=== PATIENT | female | born 2000 | race African-American/Black ===

== ENCOUNTER → 2021-09-15 | Outpatient (REF) ==
[~2021-09-15] MED LIST: LEVO50TA5 PO
== END ==
LOC: M LAB 15:12
PROVIDERS: ATTEND Nurse Practitioner Adult Health
DX: Z00.00 Encounter for general adult medical examination without abnormal findings (principal)

== ENCOUNTER 2022-04-11 12:17 | Emergency (ER) | payer MEDICAID ==
[~2022-04-11] VITALS: Ht 165.1 cm; Wt 64.1 kg
[2022-04-11 12:18] VITALS: BP 118/75
[2022-04-11] MEDS ORDERED: PRENMIS3 PO (12:39)
== END 2022-04-11 15:55 | disposition left against medical advice (07) ==
LOC: M ED 12:17
DX: Z53.21 Procedure and treatment not carried out due to patient leaving prior to being seen by health care provider (principal)

== ENCOUNTER 2022-05-02 09:53 | Emergency (ER) | payer MEDICAID, OTHER ==
[~2022-05-02 09:53] MED LIST changes: +PRENMIS3 PO
[2022-05-02] MEDS ORDERED: NS 1,000 ML IV ONE (10:00)
[2022-05-02] MEDS ORDERED: methylPREDNISolone 125MG 2ML VIAL IV ONE (10:00)
[2022-05-02] MEDS ORDERED: IPRATROPIUM 0.5MG/ALBUTEROL 2.5MG INH SOL UD 3ML (DUONEB) As Ordered ONE (10:03)
[2022-05-02] MEDS ORDERED: ALBUTEROL SULFATE 2.5 MG/0.5 ML INH NEB SOLN As Ordered ONE (10:04)
[2022-05-02 10:07] LABS: ABG BASE EXCESS -0.4 (-2.0-2.0); ABG HCO3 21.5 MEQ/L (22.0-26.0); ABG O2 SATURATION 99.4 % (95.0-99.0); ABG PARTIAL PRESSURE CO2 28.2 mmHg (35.0-45.0); ABG PARTIAL PRESSURE O2 185.8 mmHg (75.0-100.0); ABG STANDARD HCO3 24.2 MEQ/L (22.0-26.0); ABG TOTAL CO2 22.4 MEQ/L (22.0-29.0); ABG pH (ARTERIAL) 7.501 UNITS (7.350-7.450)
[2022-05-02 10:25] LABS: BASO % 0.3 % (0.0-1.0); EOS # 0.1 10^3/uL (0.0-0.5); EOS % 1.3 % (0.0-3.0); HEMATOCRIT 40.6 % (36.0-47.0); HEMOGLOBIN 14.1 g/dl (12.0-15.5); LYMPH # 2.5 10^3/uL (1.5-5.0); LYMPH % 28.8 % (24.0-44.0); MEAN CORPUSCULAR HEMOGLOBIN 28.9 pg (27.0-33.0); MEAN CORPUSCULAR HGB CONC 34.7 g/dl (32.0-36.5); MEAN CORPUSCULAR VOLUME 83.2 fl (80.0-96.0); MONO # 0.8 10^3/uL (0.0-0.8); MONO % 8.7 % (2.0-8.0); NEUTROPHILS # 5.3 10^3/uL (1.5-8.5); NEUTROPHILS % 60.4 % (36.0-66.0); PLATELET COUNT, AUTOMATED 378 10^3/uL (150-450); RED BLOOD COUNT 4.88 10^6/uL (4.00-5.40); WHITE BLOOD COUNT 8.8 10^3/uL (4.0-10.0)
[2022-05-02] MEDS ORDERED: ALBUTEROL SULFATE 2.5 MG/0.5 ML INH NEB SOLN INH ONE (10:50)
[2022-05-02] MEDS ORDERED: IPRATROPIUM 0.5MG/ALBUTEROL 2.5MG INH SOL UD 3ML (DUONEB) NEB ONE (10:50)
[2022-05-02 11:06] LABS: MAGNESIUM LEVEL 1.9 MG/DL (1.8-2.4)
[2022-05-02 11:47] LABS: ALBUMIN 3.9 GM/DL (3.2-5.2); ALT/SGPT 17 U/L (12-78); BILIRUBIN,DIRECT 0.1 MG/DL (0.0-0.2); BILIRUBIN,TOTAL 0.4 MG/DL (0.2-1.0); BLOOD UREA NITROGEN 5 MG/DL (7-18); CALCIUM LEVEL 8.8 MG/DL (8.5-10.1); CARBON DIOXIDE LEVEL 23 MEQ/L (21-32); CHLORIDE LEVEL 105 MEQ/L (98-107); CREATININE FOR GFR 0.77 MG/DL (0.55-1.30); GLOMERULAR FILTRATION RATE > 60.0 (>60); GLUCOSE, FASTING 79 MG/DL (70-100); NT-PRO BNP 84 PG/ML (<125); POTASSIUM SERUM 3.8 MEQ/L (3.5-5.1); SODIUM LEVEL 134 MEQ/L (136-145); THYROXINE (T4) 17.3 UG/DL (4.5-12.0); TOTAL PROTEIN 8.3 GM/DL (6.4-8.2)
[2022-05-02 11:53] LABS: APPEARANCE, URINE MANUAL CLEAR (CLEAR); BILIRUBIN, URINE MANUAL NEGATIVE (NEGATIVE); BLOOD URINE MANUAL NEGATIVE (NEGATIVE); COLOR, URINE MANUAL YELLOW (YELLOW); GLUCOSE, URINE (UA) MANUAL NEGATIVE (NEGATIVE); KETONE, URINE MANUAL NEGATIVE (NEGATIVE); LEUKOCYTE ESTERASE, URINE MAN NEGATIVE (NEGATIVE); NITRITE, URINE MANUAL NEGATIVE (NEGATIVE); PROTEIN, URINE MANUAL NEGATIVE (NEGATIVE); SPECIFIC GRAVITY,URINE MANUAL 1.005 (1.002-1.035); UROBILINOGEN, URINE MANUAL NORMAL (NORMAL)
[2022-05-02 12:45] LABS: AMPHETAMINES LEVEL URINE NEGATIVE (NEGATIVE); BARBITURATES URINE NEGATIVE (NEGATIVE); BENZODIAZEPINES URINE NEGATIVE (NEGATIVE); CANNABINOIDS URINE NEGATIVE (NEGATIVE); COCAINE METABOLITE URINE NEGATIVE (NEGATIVE); METHADONE URINE NEGATIVE (NEGATIVE); OPIATES URINE NEGATIVE (NEGATIVE); PHENCYCLIDINE URINE NEGATIVE (NEGATIVE)
[2022-05-02] MEDS ORDERED: PRED20TA PO (14:05)
[2022-05-02] MEDS ORDERED: ALBU6.7H6 INH (14:05)
[2022-05-02 15:15] VITALS: BP 111/69
[2022-05-02 16:14] LABS: INR 1.04; PROTHROMBIN TIME 13.8 SECONDS (12.5-14.5)
== END 2022-05-02 15:15 | disposition home or self-care (01) ==
LOC: M ED 10:52
DX: O99.511 Diseases of the respiratory system complicating pregnancy, first trimester (principal); Z3A.09 9 weeks gestation of pregnancy; Z90.89 Acquired absence of other organs; Z79.899 Other long term (current) drug therapy; Z88.8 Allergy status to other drugs, medicaments and biological substances
CPT/HCPCS: 36600; 71045; 76801; 80047; 80048; 80076; 80307; 81002; 82803; 83605; 83735; 83880; 84436; 84443; 84550; 84702; 85025; 85384; 85610; 87040; 87077; 87086; 87486; 87581; 87633; 87798; 93005; 93041; 94640; 94760; 96361; 96374; 99285; J2930

== ENCOUNTER → 2022-07-18 | Outpatient (CLI) | payer OTHER ==
[~2022-07-18] MED LIST changes: +ALBU6.7H6 INH; +PRED20TA PO
== END ==
LOC: M WHC 11:41 → MERGE 12:00
PROVIDERS: ATTEND Nurse Practitioner Women's Health
DX: Z34.92 Encounter for supervision of normal pregnancy, unspecified, second trimester (principal); Z3A.20 20 weeks gestation of pregnancy

== ENCOUNTER 2022-08-02 07:22 | Emergency (ER) | payer OTHER ==
[~2022-08-02] VITALS: Ht 165.1 cm; Wt 66.6 kg
[2022-08-02] MEDS ORDERED: NS 1,000 ML IV ONE (09:25)
[2022-08-02] MEDS ORDERED: LIDOCAINE VISCOUS 2% SOLN 15ML UDC SS ONE (09:25)
[2022-08-02 10:29] LABS: BASO % 0.4 % (0.0-1.0); EOS # 0.2 10^3/uL (0.0-0.5); EOS % 2.7 % (0.0-3.0); HEMATOCRIT 35.2 % (36.0-47.0); HEMOGLOBIN 12.2 g/dl (12.0-15.5); LYMPH # 1.5 10^3/uL (1.5-5.0); LYMPH % 19.9 % (24.0-44.0); MEAN CORPUSCULAR HGB CONC 34.7 g/dl (32.0-36.5); MEAN CORPUSCULAR VOLUME 86.5 fl (80.0-96.0); MONO # 0.6 10^3/uL (0.0-0.8); MONO % 8.4 % (2.0-8.0); NEUTROPHILS # 5.1 10^3/uL (1.5-8.5); NEUTROPHILS % 67.9 % (36.0-66.0); PLATELET COUNT, AUTOMATED 259 10^3/uL (150-450); RED BLOOD COUNT 4.07 10^6/uL (4.00-5.40); WHITE BLOOD COUNT 7.5 10^3/uL (4.0-10.0)
[2022-08-02 10:50] LABS: ERYTHROCYTE SEDIMENTATION RATE 39 mm/hr (0-20)
[2022-08-02 11:00] LABS: BLOOD UREA NITROGEN < 5 MG/DL (9-23); CALCIUM LEVEL 8.1 MG/DL (8.5-10.1); CARBON DIOXIDE LEVEL 24 MMOL/L (20-31); CHLORIDE LEVEL 104 MMOL/L (98-107); CREATININE FOR GFR 0.62 MG/DL (0.55-1.30); GLOMERULAR FILTRATION RATE > 60.0 (>60); GLUCOSE, FASTING 88 MG/DL (60-100); POTASSIUM SERUM 3.8 MMOL/L (3.5-5.1); SODIUM LEVEL 136 MMOL/L (136-145)
[2022-08-02 11:02] LABS: MONO REFLEX EBV COMP NEGATIVE (NEGATIVE)
[2022-08-02] MEDS ORDERED: AUGMENTIN 875 MG TAB PO ONE (11:45)
[2022-08-02] MEDS ORDERED: AMOX875T2 PO (11:49)
[2022-08-02] MEDS ORDERED: BENZ200C70 PO (11:49)
[2022-08-02] MEDS ORDERED: PRED5SOL10 PO (11:49)
[2022-08-02] MEDS ORDERED: MUCI1TAB16 PO (11:49)
[2022-08-02] MEDS ORDERED: SALI0.6530 NARES (11:51)
[2022-08-02 11:53] VITALS: BP 104/51
[2022-08-02] MEDS ORDERED: predniSONE 20 MG TAB PO ONE (11:55)
[2022-08-03 15:08] LABS: EBV AB TO NUCLEAR ANTIGEN >600.0 U/mL (0.0-17.9); EBV VIRAL CAPSID AG IgM <36.0 U/mL (0.0-35.9)
== END 2022-08-02 12:03 | disposition home or self-care (01) ==
LOC: M ED 07:22
DX: O99.512 Diseases of the respiratory system complicating pregnancy, second trimester (principal); J03.90 Acute tonsillitis, unspecified; R09.81 Nasal congestion; J45.909 Unspecified asthma, uncomplicated; Z88.1 Allergy status to other antibiotic agents; Z88.7 Allergy status to serum and vaccine; Z3A.22 22 weeks gestation of pregnancy; Z79.52 Long term (current) use of systemic steroids; Z79.2 Long term (current) use of antibiotics; Z79.810 Long term (current) use of selective estrogen receptor modulators (SERMs); Z79.899 Other long term (current) drug therapy
CPT/HCPCS: 36415; 80048; 83605; 85025; 85652; 86140; 86308; 86664; 86665; 87428; 87880; 99284; J7512

== ENCOUNTER → 2022-09-28 | Outpatient (CLI) | payer OTHER ==
[~2022-09-28] VITALS: Ht 165.1 cm; Wt 70.6 kg
[~2022-09-28] MED LIST changes: +AMOX875T2 PO; +BENZ200C70 PO; +MUCI1TAB16 PO; +PRED15SO24 PO; +SALI0.6530 NARES
[2022-09-28 20:02] VITALS: BP 119/65
== END ==
LOC: M LDO 19:34
PROVIDERS: ATTEND Obstetrics & Gynecology
DX: O36.8130 Decreased fetal movements, third trimester, not applicable or unspecified (principal); Z3A.30 30 weeks gestation of pregnancy; O99.283 Endocrine, nutritional and metabolic diseases complicating pregnancy, third trimester; E03.9 Hypothyroidism, unspecified; Z79.890 Hormone replacement therapy; Z88.1 Allergy status to other antibiotic agents; Z88.8 Allergy status to other drugs, medicaments and biological substances
CPT/HCPCS: 59025; 76815; G0463

== ENCOUNTER → 2022-10-12 | Outpatient (CLI) | payer OTHER | LOC: M WHC 07:45 | PROVIDERS: ATTEND Obstetrics & Gynecology | DX: O26.843 Uterine size-date discrepancy, third trimester (principal); Z3A.32 32 weeks gestation of pregnancy ==

== ENCOUNTER 2022-10-28 11:00 | Inpatient (IN) | payer OTHER ==
[~2022-10-28] VITALS: Ht 165.1 cm; Wt 73.7 kg
[2022-10-28] MEDS: PRENATAL VITAMINS CHEWABLE TABLET PO SCH (09:00)
[2022-10-28 11:18] VITALS: BP 131/85
[2022-10-28] MEDS ORDERED: PRENTAB9 PO (11:39)
[2022-10-28] MEDS ORDERED: LEVO112T2 PO (11:39)
[2022-10-28] MEDS ORDERED: UNIS25TA3 PO (11:39)
[2022-10-28] MEDS ORDERED: HEAL1TAB PO (11:40)
[2022-10-28] MEDS ORDERED: HOME MED LIST COMPLETE! XX SCH (11:40)
[2022-10-28] MEDS ORDERED: FLUCONAZOLE 50MG TABLET PO ONE (11:55)
[2022-10-28] MEDS ORDERED: DOCUSATE SODIUM 100MG CAPSULE PO PRN (12:00)
[2022-10-28] MEDS ORDERED: LACTATED RINGER'S 1000 ML IV STA (12:01)
[2022-10-28 12:34] LABS: BASO % 0.4 % (0.0-1.0); EOS # 0.1 10^3/uL (0.0-0.5); EOS % 1.7 % (0.0-3.0); HEMATOCRIT 33.9 % (36.0-47.0); HEMOGLOBIN 11.3 g/dl (12.0-15.5); LYMPH # 1.9 10^3/uL (1.5-5.0); LYMPH % 24.6 % (24.0-44.0); MEAN CORPUSCULAR HEMOGLOBIN 28.5 pg (27.0-33.0); MEAN CORPUSCULAR HGB CONC 33.3 g/dl (32.0-36.5); MEAN CORPUSCULAR VOLUME 85.4 fl (80.0-96.0); MONO # 0.9 10^3/uL (0.0-0.8); MONO % 12.2 % (2.0-8.0); NEUTROPHILS # 4.6 10^3/uL (1.5-8.5); NEUTROPHILS % 60.7 % (36.0-66.0); PLATELET COUNT, AUTOMATED 311 10^3/uL (150-450); RED BLOOD COUNT 3.97 10^6/uL (4.00-5.40); WHITE BLOOD COUNT 7.6 10^3/uL (4.0-10.0)
[2022-10-28] MEDS: BETAMETHASONE SOLUSPAN 6MG/ML 5ML VIAL IM SCH (12:56)
[2022-10-28] MEDS: LR 1,000 ML IV SCH ×2 (12:57→20:02)
[2022-10-28 14:21] VITALS: BP 114/65
[2022-10-28 14:52] LABS: GC DNA AMPLIFICATION NEGATIVE (NEGATIVE)
[2022-10-28 17:43] VITALS: BP 106/59
[2022-10-28 18:13] LABS: APPEARANCE, URINE HAZY (CLEAR); BACTERIA, URINE AUTO 1+ (NEGATIVE); BILIRUBIN, URINE AUTO NEGATIVE (NEGATIVE); BLOOD, URINE BLOOD 1+ (NEGATIVE); COLOR, URINE YELLOW (YELLOW); GLUCOSE, URINE (UA) AUTO NEGATIVE (NEGATIVE); KETONE, URINE AUTO NEGATIVE (NEGATIVE); LEUKOCYTE ESTERASE, URINE AUTO 3+ (NEGATIVE); NITRITE, URINE AUTO NEGATIVE (NEGATIVE); PROTEIN, URINE AUTO NEGATIVE (NEGATIVE); RBC, URINE AUTO 7 /HPF (0-3); SPECIFIC GRAVITY URINE AUTO 1.009 (1.002-1.035); SQUAMOUS EPITHELIAL CELL UR AU 3 /HPF (0-6); WBC, URINE AUTO 38 /HPF (0-3)
[2022-10-28 20:03] VITALS: BP 108/67
[2022-10-28 23:24] VITALS: BP 107/60
[2022-10-28] MEDS ORDERED: diphenhydrAMINE 50MG/ML VIAL IV ONE (23:30)
[2022-10-28] MEDS ORDERED: diphenhydrAMINE 50MG CAP PO ONE (23:40)
[2022-10-29] VITALS (11 sets, daily range): BP systolic 95–129; BP diastolic 51–74
[2022-10-29] MEDS ORDERED: ONDANSETRON 4MG 2ML VIAL IV SCH (03:00)
[2022-10-29] MEDS: LR 1,000 ML IV SCH ×4 (03:47→20:19)
[2022-10-29] MEDS: LEVOTHYROXINE 112MCG TABLET (0.112MG) PO SCH (06:09)
[2022-10-29] MEDS ORDERED: ONDANSETRON 4MG 2ML VIAL IV PRN (08:00)
[2022-10-29] MEDS: PRENATAL VITAMINS CHEWABLE TABLET PO SCH (09:00)
[2022-10-29] MEDS: BETAMETHASONE SOLUSPAN 6MG/ML 5ML VIAL IM SCH (12:09)
[2022-10-30] VITALS (16 sets, daily range): BP systolic 100–135; BP diastolic 54–78
[2022-10-30] MEDS: LR 1,000 ML IV SCH (05:19)
[2022-10-30] MEDS: LEVOTHYROXINE 112MCG TABLET (0.112MG) PO SCH (06:56)
[2022-10-30] MEDS: PRENATAL VITAMINS CHEWABLE TABLET PO SCH (09:00)
[2022-10-30] MEDS ORDERED: OXYTOCIN INJ 10UNITS/ML 1ML VIAL IM PRN (12:10)
[2022-10-30] MEDS ORDERED: TRANEXAMIC ACID INJection 1,000 MG in NS 100 ML IV PRN (12:10)
[2022-10-30] MEDS ORDERED: OXYTOCIN DRIP 30 UNITS in IV 1 EA IV SCH ×2 (12:10→23:50)
[2022-10-30] MEDS ORDERED: LIDOCAINE 1% MDV 20ML VIAL INFIL PRN (12:10)
[2022-10-30] MEDS ORDERED: OXYTOCIN DRIP 30 UNITS in IV 1 EA IV PRN ×6 (12:10)
[2022-10-30] MEDS ORDERED: OXYTOCIN INJ 10UNITS/ML 1ML VIAL IV PRN (12:10)
[2022-10-30] MEDS ORDERED: CARBOPROST TROMETHAMINE 250 MCG/ML AMP IM PRN (12:10)
[2022-10-30] MEDS ORDERED: LR 1,000 ML IV SCH (12:10)
[2022-10-30] MEDS ORDERED: METHYLERGONOVINE MALEATE 0.2MG/ML 1ML VIAL IM PRN (12:10)
[2022-10-30] MEDS ORDERED: miSOPROStol 50MCG 1/2 TABLET PV PRN (12:10)
[2022-10-30] MEDS ORDERED: miSOPROStol 50MCG 1/2 TABLET PO ONE (14:15)
[2022-10-30] MEDS ORDERED: miSOPROStol 50MCG 1/2 TABLET PO PRN (14:35)
[2022-10-30] MEDS ORDERED: ACETAMINOPHEN 500 MG TAB PO ONE (16:10)
[2022-10-30] MEDS ORDERED: BICITRA 30ML SOLN UDC PO ONE ×2 (18:55→22:00)
[2022-10-30] MEDS ORDERED: ceFAZolin SOD 2 GM in IV 1 EA IV ONE (18:55)
[2022-10-30] MEDS ORDERED: ONDANSETRON 4MG 2ML VIAL As Ordered ONE (19:45)
[2022-10-30] MEDS ORDERED: KETOROLAC 60MG 2ML VIAL As Ordered ONE (19:45)
[2022-10-30] MEDS ORDERED: OXYTOCIN INJ 10UNITS/ML 1ML VIAL As Ordered ONE ×2 (19:45→23:40)
[2022-10-30] MEDS ORDERED: fentaNYL 100 MCG/2 ML INJECTION As Ordered ONE (19:46)
[2022-10-30] MEDS ORDERED: MORPHINE PRES-FREE INJ 10 MG/10 ML VIAL As Ordered ONE (19:46)
[2022-10-30 23:43] LABS: CORD GAS ABE V 1.4; CORD GAS HCO3 V 27.3 MMOL/L; CORD GAS O2 SAT V 56.9 %; CORD GAS PCO2 V 46.9 mmHg; CORD GAS PH V 7.383 UNITS; CORD GAS PO2 V 22.2 mmHg; CORD GAS SBC V 24.4 MMOL/L; CORD GAS TCO2 V 28.7 MMOL/L
[2022-10-30] MEDS ORDERED: OXYTOCIN 30UNITS IN 0.9% NaCl 500ML IV BAG As Ordered ONE (23:43)
[2022-10-30] MEDS ORDERED: ePHEDrine SULFATE 25 MG/5 ML(5MG/ML) SYRINGE As Ordered ONE (23:48)
[2022-10-30] MEDS ORDERED: oxyCODONE 5MG TAB PO PRN (23:50)
[2022-10-30] MEDS ORDERED: MOM 30ML SUSPENSION UDC PO PRN (23:50)
[2022-10-30] MEDS ORDERED: RHOGAM 300MCG (1500IU) INJ IM SCH (23:50)
[2022-10-31] VITALS (20 sets, daily range): BP systolic 111–172; BP diastolic 67–89
[2022-10-31] MEDS ORDERED: oxyCODONE 5MG TAB PO PRN
[2022-10-31] MEDS ORDERED: NALOXONE INJ 0.4MG/1ML VIAL IV PRN ×2
[2022-10-31] MEDS ORDERED: **NOTE PATIENT COMMENT** MISC XX SCH
[2022-10-31] MEDS ORDERED: LR 1,000 ML IV SCH
[2022-10-31] MEDS ORDERED: METOCLOPRAMIDE INJ 10MG/2ML VIAL IV PRN
[2022-10-31] MEDS ORDERED: fentaNYL 100 MCG/2 ML INJECTION IV PRN
[2022-10-31] MEDS ORDERED: ONDANSETRON 4MG 2ML VIAL IV PRN
[2022-10-31] MEDS ORDERED: diphenhydrAMINE 50MG/ML VIAL IV PRN
[2022-10-31] MEDS ORDERED: diphenhydrAMINE 50MG/ML VIAL As Ordered ONE (00:14)
[2022-10-31] MEDS: SLF 3 ML SYR IV SCH ×2 (01:56→08:00)
[2022-10-31] MEDS ORDERED: NIFEdipine 10 MG CAP PO STA (02:18)
[2022-10-31 03:08] LABS: TOTAL PROTEIN,RANDOM URINE 10.3 MG/DL (0.0-14.0)
[2022-10-31 03:13] LABS: CREATININE,RANDOM URINE 24.8 MG/DL
[2022-10-31 03:24] LABS: HEMOGLOBIN 10.3 g/dl (12.0-15.5); MEAN CORPUSCULAR HEMOGLOBIN 28.8 pg (27.0-33.0); MEAN CORPUSCULAR HGB CONC 34.3 g/dl (32.0-36.5); MEAN CORPUSCULAR VOLUME 83.8 fl (80.0-96.0); PLATELET COUNT, AUTOMATED 273 10^3/uL (150-450); RED BLOOD COUNT 3.58 10^6/uL (4.00-5.40)
[2022-10-31 03:45] LABS: URIC ACID 5.1 MG/DL (3.1-7.8)
[2022-10-31 03:48] LABS: ALBUMIN 2.6 G/DL (3.2-5.2); ALKALINE PHOSPHATASE 160 U/L (46-116); ALT/SGPT 48 U/L (7.0-40); AST/SGOT 62 U/L (<34); BILIRUBIN,TOTAL 0.4 MG/DL (0.3-1.2); BLOOD UREA NITROGEN 6 MG/DL (9-23); CALCIUM LEVEL 8.1 MG/DL (8.5-10.1); CARBON DIOXIDE LEVEL 27 MMOL/L (20-31); CHLORIDE LEVEL 106 MMOL/L (98-107); CREATININE FOR GFR 0.65 MG/DL (0.55-1.30); GLOMERULAR FILTRATION RATE > 60.0 (>60); GLUCOSE, FASTING 97 MG/DL (60-100); LDH LACTATE DEHYDROGENASE 370 U/L (120-246); POTASSIUM SERUM 3.8 MMOL/L (3.5-5.1); SODIUM LEVEL 140 MMOL/L (136-145); TOTAL PROTEIN 5.8 G/DL (5.7-8.2)
[2022-10-31 03:49] LABS: ALT/SGPT 47 U/L (7.0-40); AST/SGOT 66 U/L (<34); BILIRUBIN,TOTAL 0.3 MG/DL (0.3-1.2); CREATININE FOR GFR 0.66 MG/DL (0.55-1.30); GLOMERULAR FILTRATION RATE > 60.0 (>60)
[2022-10-31] MEDS: KETOROLAC 30 MG/ML 1ML VIAL IV SCH ×3 (05:54→18:01)
[2022-10-31] MEDS: LEVOTHYROXINE 112MCG TABLET (0.112MG) PO SCH (05:54)
[2022-10-31] MEDS ORDERED: MAG Sulf (L&D) 4 GM/100 ML 4 GM in IV 1 EA IV ONE (08:00)
[2022-10-31] MEDS: LR 1,000 ML IV SCH ×2 (08:18→20:57)
[2022-10-31 08:24] LABS: HEMATOCRIT 27.7 % (36.0-47.0); HEMOGLOBIN 9.5 g/dl (12.0-15.5); MEAN CORPUSCULAR HEMOGLOBIN 28.9 pg (27.0-33.0); MEAN CORPUSCULAR HGB CONC 34.3 g/dl (32.0-36.5); MEAN CORPUSCULAR VOLUME 84.2 fl (80.0-96.0); PLATELET COUNT, AUTOMATED 254 10^3/uL (150-450); RED BLOOD COUNT 3.29 10^6/uL (4.00-5.40); WHITE BLOOD COUNT 18.9 10^3/uL (4.0-10.0)
[2022-10-31] MEDS: MAG Sulf (OBGYN) 20GM/500ML 20,000 MG in IV 1 EA IV SCH ×2 (08:46→18:02)
[2022-10-31] MEDS: PRENATAL VITAMINS CHEWABLE TABLET PO SCH (09:00)
[2022-10-31] MEDS: DOCUSATE SODIUM 100MG CAPSULE PO SCH ×2 (09:00→20:53)
[2022-10-31] MEDS: SIMETHICONE 80MG CHEW TAB PO PRN (20:53)
[2022-11-01] VITALS (10 sets, daily range): BP systolic 109–125; BP diastolic 72–85
[2022-11-01] MEDS: ACETAMINOPHEN 500 MG TAB PO PRN ×3 (02:17→22:00)
[2022-11-01] MEDS: IBUPROFEN 800 MG TAB PO SCH ×3 (02:19→18:37)
[2022-11-01] MEDS: MAG Sulf (OBGYN) 20GM/500ML 20,000 MG in IV 1 EA IV SCH (03:50)
[2022-11-01] MEDS: LEVOTHYROXINE 112MCG TABLET (0.112MG) PO SCH (06:56)
[2022-11-01] MEDS ORDERED: MEASLES,MUMPS,RUBELLA VACCINE INJ (MMR-II) SC.IMMUN ONE (09:00)
[2022-11-01] MEDS: DOCUSATE SODIUM 100MG CAPSULE PO SCH ×2 (09:42→21:36)
[2022-11-01] MEDS: PRENATAL VITAMINS CHEWABLE TABLET PO SCH ×2 (09:42→09:44)
[2022-11-01] MEDS: oxyCODONE 5MG TAB PO PRN ×2 (09:42→21:39)
[2022-11-01] MEDS: SIMETHICONE 80MG CHEW TAB PO PRN (09:42)
[2022-11-02 02:00] VITALS: BP 106/62
[2022-11-02] MEDS: IBUPROFEN 800 MG TAB PO SCH ×2 (02:00→10:22)
[2022-11-02] MEDS: LEVOTHYROXINE 112MCG TABLET (0.112MG) PO SCH (05:47)
[2022-11-02] MEDS: oxyCODONE 5MG TAB PO PRN (05:49)
[2022-11-02 06:00] VITALS: BP 104/60
[2022-11-02] MEDS: DOCUSATE SODIUM 100MG CAPSULE PO SCH (08:37)
[2022-11-02] MEDS: PRENATAL VITAMINS CHEWABLE TABLET PO SCH (08:38)
[2022-11-02 10:00] VITALS: BP 115/75
[2022-11-02] MEDS: ACETAMINOPHEN 500 MG TAB PO PRN (12:34)
== END 2022-11-02 15:00 | disposition home or self-care (01) | DRG 771 ==
LOC: M LDO 11:00 → M LDI 10-29 01:47 → M OBS 10-31 01:30
PROVIDERS: ADMIT Obstetrics & Gynecology; ATTEND Obstetrics & Gynecology
PROC: 3E0DXGC Introduction of Other Therapeutic Substance into Mouth and Pharynx, External Approach (ICD-10-PCS; 2022-10-29)
PROC: 10D00Z1 Extraction of Products of Conception, Low, Open Approach (ICD-10-PCS; principal; 2022-10-30 19:39)
DX: O41.03X0 Oligohydramnios, third trimester, not applicable or unspecified (principal); O60.14X0 Preterm labor third trimester with preterm delivery third trimester, not applicable or unspecified; Z37.0 Single live birth; Z3A.35 35 weeks gestation of pregnancy; O69.82X0 Labor and delivery complicated by other cord entanglement, without compression, not applicable or unspecified; E03.9 Hypothyroidism, unspecified; O99.284 Endocrine, nutritional and metabolic diseases complicating childbirth; O36.5990 Maternal care for other known or suspected poor fetal growth, unspecified trimester, not applicable or unspecified; O76 Abnormality in fetal heart rate and rhythm complicating labor and delivery